=== PATIENT | male | born 1985 | race Two or more races ===

== ENCOUNTER 2016-12-26 08:58 | Emergency (ER) | payer OTHER ==
[2016-12-26 09:12] VITALS: TEMP 98.2; BMI 36.8
[2016-12-26] MEDS ORDERED: SODIUM CHLORIDE 1,000 ML IV STA (09:45)
[2016-12-26] MEDS ORDERED: ONDANSETRON *ODT* 4 MG TABLET SL ONE (09:45)
[2016-12-26] MEDS ORDERED: PANTOPRAZOLE SODIUM 40 MG in SODIUM CHLORIDE 100 ML IVPB ONE (09:45)
[2016-12-26] MEDS ORDERED: ONDANSETRON 4 MG/2 ML VIAL IVPUSH ONE (09:49)
[2016-12-26] MEDS ORDERED: PANTOPRAZOLE SODIUM 100 ML IVPB ONE (09:50)
[2016-12-26] MEDS ORDERED: ONDANSETRON 4 MG/2 ML VIAL ONE (09:50)
[2016-12-26 10:21] LABS: BASOPHIL 0.4 % (0-2.0); MCH 27.5 pg (25.7-33.7); MEAN CELL VOLUME 83.5 fl (80-96); MEAN PLT VOLUME 9.2 fl (7.5-11.1); PLATELET COUNT 183 K/MM3 (134-434)
[2016-12-26 10:30] LABS: URINE APPEARANCE CLEAR; URINE BILIRUBIN NEGATIVE (NEGATIVE); URINE COLOR DKYELLOW; URINE GLUCOSE (UA) NEGATIVE (NEGATIVE); URINE KETONE NEGATIVE (NEGATIVE); URINE LEUK ESTERASE NEGATIVE (NEGATIVE); URINE NITRITE NEGATIVE (NEGATIVE); URINE PROTEIN NEGATIVE (NEGATIVE); URINE UROBILINOGEN 4.0 E.U/dl E.U./dl (0.2-1.0)
[2016-12-26 10:35] LABS: URINE BLOOD 1+ (NEGATIVE)
[2016-12-26 10:40] LABS: URINE MUCUS MANY; URINE RBC 2 /hpf (0-3); URINE WBC <1 /hpf (3-5)
[2016-12-26 10:45] LABS: ALBUMIN 4.2 g/dl (3.4-5.0); ALK PHOS 168 U/L (45-117); ANION GAP 9 (8-16); BILIRUBIN,TOTAL 0.6 mg/dL (0.2-1.0); CALCIUM 9.1 mg/dL (8.5-10.1); CO2 26 mmol/L (21-32); CREATININE 0.9 mg/dL (0.7-1.3); GLUCOSE,RANDOM 84 mg/dL (74-106); SGPT/ALT 131 U/L (12-78); TOT PROT 8.5 g/dl (6.4-8.2)
[2016-12-26 10:46] LABS: SGOT/AST 125 U/L (15-37)
--- NOTE | 2016-12-26 12:24 | PDOC ---
History of Present Illness - General Chief Complaint: Vomiting/Diarrhea Stated Complaint: Vomiting/Diarrhea/FEVER Time Seen by Provider: 12/26/16 09:25 - History of Present Illness Initial Comments: 12/26/16 13:06 Mr. Gale is a 31 y/o male with a PMH of cholecystectomy appendectomy, presents to the ED today complaining of nausea diarrhea and anorexia x3 days. Pt. states that he started having nausea three days ago and developed anorexia. He felt that he had some fevers and chills, but did not take his temperature. Pt states that he has been able to eat some chicken soup but he has not been eating his normal amount. He states that he began with diarrhea today and had 6 loose bowel movements. Denies blood in the stool. Denies urinary changes, dysuria, hematuria. Pt. denies recent travel, dietary changes, recent antibiotic use, recent hospitalization. Pt. denies abdominal pain, chest pain, palpitations, SOB, edema Past History - Past Medical History Allergies/Adverse Reactions: Allergies Allergy/AdvReac Type Severity Reaction Status Date / Time No Known Allergies Allergy Verified 10/11/15 02:52 Home Medications: Ambulatory Orders NK [No Known Home Medication] 12/26/16 Other medical history: denies - Surgical History Appendectomy: Yes Cholecystectomy: Yes - Immunization History Immunization Up to Date: Yes - Psycho/Social/Smoking Cessation Hx Anxiety: No Suicidal Ideation: No Smoking History: Never smoked Have you smoked in the past 12 months: No Number of Cigarettes Smoked Daily: 0 Cigars Per Day: 0 Hx Alcohol Use: No Drug/Substance Use Hx: No Substance Use Type: None *Physical Exam - Vital Signs Last Vital Signs Temp Pulse Resp BP Pulse Ox 98.2 F 73 16 151/70 98 12/26/16 09:08 12/26/16 09:08 12/26/16 09:08 12/26/16 09:08 12/26/16 09:08 - Physical Exam Comments: 12/26/16 12:24 GENERAL: Well developed, well nourished. Awake and alert. No acute distress. HEENT: Normocephalic, atraumatic. PERRLA, EOMI. No conjunctival pallor. Sclera are non- icteric. Moist mucous membranes. Oropharynx is clear. NECK: Supple. Full ROM. No JVD. Carotid pulses 2+ and symmetric, without bruits. No thyromegaly. No lymphadenopathy. CARDIOVASCULAR: Regular rate and rhythm. No murmurs, rubs, or gallops. Distal pulses are 2+ and symmetric. PULMONARY: No evidence of respiratory distress. Lungs clear to auscultation bilaterally. No wheezing, rales or rhonchi. ABDOMINAL: Soft. Non-tender. Non-distended. No rebound or guarding. No organomegaly. Normoactive bowel sounds. (-) Stevenson's sign MUSCULOSKELETAL Normal range of motion at all joints. No bony deformities or tenderness. No CVA tenderness. EXTREMITIES: No cyanosis. No clubbing. No edema. No calf tenderness. SKIN: Warm and dry. Normal capillary refill. No rashes. No jaundice. NEUROLOGICAL: Alert, awake, appropriate. Cranial nerves 2-12 intact. No deficits to light touch and temperature in face, upper extremities and lower extremities. No motor deficits in the in face, upper extremities and lower extremities. Normoreflexic in the upper and lower extremities. Normal speech. Toes are down- going bilaterally. Gait is normal without ataxia. PSYCHIATRIC: Cooperative. Good eye contact. Appropriate mood and affect. ED Treatment Course - LABORATORY CBC & Chemistry Diagram: 12/26/16 10:00 12/26/16 09:48 Medical Decision Making - Medical Decision Making 12/26/16 11:28 Pt is a 31-year-old male status post cholecystectomy presenting with nausea and diarrhea 3 days. Abdominal exam is benign and there are negative red on history. No Stevenson's sign or right upper quadrant pain. Given sick contacts at work, potential viral ideology. Less likely pancreatitis, cholangitis. At this time we will order basic and treat for nausea. Will reevaluate 1. CBC, CMP. 2. Will start IV fluids and give zofran and pantoprazole 3. Will re-evaluate 12/26/16 12:28 Liver enzymes are back elevated. ALT 130, AST 125 and Alk Phos, 166. (+) urobiligen 4.0. Pt. denies alcohol and IV drug use. Concerning for hepatitis. Will send labs out. Pt. sees Dr. Maurice Bernal as an out patient. Spoke with his PA, Russell Kamara. Agreed with lab orders, did not recommend any additional testing and will see as outpatient this week. Pt. is feeling better at this time. Will discharge home with close PCP follow up. Gave dietary advice, emphasized hand washing, and advocated for liberal PO fluid intake *DC/Admit/Observation/Transfer Diagnosis at time of Disposition: Viral illness - Discharge Dispostion Disposition: HOME Condition at time of disposition: Improved - Referrals Referrals: Maurice Bernal MD [Primary Care Provider] - - Patient Instructions Printed Discharge Instructions: DI for Viral Gastroenteritis -- Adult Additional Instructions: You have a viral illness with elevated liver enzymes. As we spoke today, this could potentially be a hepatitis. You had hepatitis labs ordered today, call on Saturday12/29/16 for your results. You can call the ED directly at [phone]. Follow up with Dr. Bernal's office within 48 hours. Drink plenty of fluids and eat a bland diet. Avoid dairy products until symptoms have resolved for 48 hours. If you have increasing abdominal pain, cannot keep food down, new fevers or chills, return to the ED. - Post Discharge Activity Work/School Note: Back to Work
[2016-12-26 13:13] VITALS: BP 142/68; PULSE 71
[2016-12-27 06:06] LABS: HEP B SURFACE AB Reactive (.)
== END 2016-12-26 13:13 | disposition home or self-care (01) ==
LOC: JER 08:58
PROC: 3E033GC Introduction of Other Therapeutic Substance into Peripheral Vein, Percutaneous Approach (ICD-10-PCS; principal; 2016-12-26)
PROC: 3E0337Z Introduction of Electrolytic and Water Balance Substance into Peripheral Vein, Percutaneous Approach (ICD-10-PCS; 2016-12-26)
DX: B34.9 Viral infection, unspecified (principal)
CPT/HCPCS: 36415; 80053; 81003; 81015; 83690; 85025; 86704; 86706; 86708; 87340; 96361; 96365; 96375; 99282-25

== ENCOUNTER 2017-01-04 02:26 | Emergency (ER) | payer OTHER ==
[2017-01-04] MEDS ORDERED: NAPROXEN 500 MG TABLET (FP) PO ONE (03:23)
--- NOTE | 2017-01-04 03:23 | PDOC ---
History of Present Illness - General History Source: Patient Exam Limitations: No Limitations - History of Present Illness Initial Comments: 01/04/17 03:30 The patient is a 31 year old male, with a significant past medical history of cholecystitis, who presents to the emergency department complaining of a sore throat for 2 days. The patient reports associated throat pain. He rates the throat pain as a 10/10. The patient reports minor right ear pain, but denies any ear discharge, nasal congestion, or rhinorrhea. The patient denies any cough , fever, chills, headache, or dizziness. The patient denies any nausea, vomiting , diarrhea, or constipation. The patient denies any dysuria, hematuria, frequency, or urgency. The patient denies any changes in appetite. The patient denies any recent travel or sick contacts. Allergies: None reported. Past Surgical History: Appendectomy, Cholecystectomy Social History: Non-smoker. Denies alcohol or drug use. PCP: Dr. Maurice Bernal <Rj Gasca - Last Filed: 01/04/17 03:30> - General History Source: Patient <Thierno Obrien - Last Filed: 01/04/17 03:55> - General Chief Complaint: Sore Throat Stated Complaint: SORE THROAT Time Seen by Provider: 01/04/17 03:05 Past History <Rj Gasca - Last Filed: 01/04/17 03:30> - Surgical History Appendectomy: Yes Cholecystectomy: Yes - Immunization History Immunization Up to Date: Yes - Psycho/Social/Smoking Cessation Hx Anxiety: No Suicidal Ideation: No Smoking History: Never smoked Have you smoked in the past 12 months: No Number of Cigarettes Smoked Daily: 0 Cigars Per Day: 0 Information on smoking cessation initiated: No Hx Alcohol Use: No Drug/Substance Use Hx: No Substance Use Type: None <Thierno Obrien - Last Filed: 01/04/17 03:55> - Past Medical History Allergies/Adverse Reactions: Allergies Allergy/AdvReac Type Severity Reaction Status Date / Time No Known Allergies Allergy Verified 01/04/17 02:50 Home Medications: Ambulatory Orders Naproxen [Naprosyn -] 500 mg PO BID #30 tablet 01/04/17 Review of Systems - Review of Systems Able to Perform ROS?: Yes Comments:: 01/04/17 03:30 CONSTITUTIONAL: Absent: fever, no chills, no fatigue HEENT: Present: +right ear pain, +sore throat, +throat pain Absent: rhinorrhea, nasal congestion, mouth swelling, left ear pain, eye pain, visual changes CARDIOVASCULAR: Absent: chest pain, no palpitations RESPIRATORY: Absent: cough, no SOB GI: Absent: abdominal pain, no nausea, no vomiting, no constipation, no diarrhea GENITOURINARY: Absent: dysuria, no frequency, no hematuria MUSKULOSKELETAL: Absent: back pain, no arthralgia, no myalgia SKIN: Absent: rash NEURO: Absent: headache <Rj Gasca - Last Filed: 01/04/17 03:30> *Physical Exam - Vital Signs Last Vital Signs Temp Pulse Resp BP Pulse Ox 97.8 F 54 L 14 142/69 99 01/04/17 02:51 01/04/17 02:51 01/04/17 02:51 01/04/17 02:51 01/04/17 02:51 - Physical Exam Comments: 01/04/17 03:31 GENERAL: Well-appearing, well-nourished. No apparent distress. HEENT: Normocephalic, atraumatic. PERRLA, EOMI. No conjunctival pallor. Sclera are non- icteric. Moist mucous membranes. Throat is erythematous with no exudates CARDIOVASCULAR: Normal S1, S2. Regular rate and rhythm. PULMONARY: Clear to auscultation bilaterally. ABDOMEN: Soft, non-distended, non-tender. EXTREMITIES: Normal ROM in all four extremities. No gross deformities. SKIN: Warm, dry. No rash NEUROLOGICAL: No focal neurological deficits. <CamposJuliairisyogisamantha - Last Filed: 01/04/17 03:30> - Vital Signs Last Vital Signs Temp Pulse Resp BP Pulse Ox 97.8 F 54 L 14 142/69 99 01/04/17 02:51 01/04/17 02:51 01/04/17 02:51 01/04/17 02:51 01/04/17 02:51 <Thierno Obrien - Last Filed: 01/04/17 03:55> Medical Decision Making - Medical Decision Making 01/04/17 03:53 Dr. Obrien: The scribe's documentation has been prepared under my direction and personally reviewed by me in its entirery. I confirm that the note above accurately reflects all work, treatment, procedures, and medical decision making performed by me. Rapid strep is negative. patient advised drink plenty fluids and taken to take plenty of fluids <Thierno Obrien - Last Filed: 01/04/17 03:55> *DC/Admit/Observation/Transfer - Attestations Scribe Attestion: 01/04/17 03:33 Documentation prepared by Rj Gasca, acting as medical support assistant for Thierno Obrien DO. <Rj Gasca - Last Filed: 01/04/17 03:30> - Discharge Dispostion Admit: No <Thierno Obrien - Last Filed: 01/04/17 03:55> Diagnosis at time of Disposition: Viral illness - Discharge Dispostion Disposition: HOME Condition at time of disposition: Stable - Referrals Referrals: Maurice Bernal MD [Primary Care Provider] - - Patient Instructions Printed Discharge Instructions: DI for Viral Pharyngitis - Post Discharge Activity Work/School Note: Back to Work
[2017-01-04] MEDS ORDERED: NAPROXEN 500 MG TABLET (FP) ONE (03:32)
[2017-01-04 04:28] VITALS: BP 142/69; PULSE 54; TEMP 97.8; BMI 37.1
[2017-01-05] MEDS ORDERED: DEXAMETHASONE SOD PHOSPHATE 10 MG/1 ML VIAL ONE (15:04)
[2017-01-05] MEDS ORDERED: CLINDAMYCIN 600MG PREMIX IVPB 50 ML IVPB ONE (15:05)
[2017-01-05] MEDS ORDERED: KETOROLAC TROMETHAMINE 30 MG/1 ML VIAL ONE (15:05)
== END 2017-01-04 03:59 | disposition home or self-care (01) ==
LOC: JER 02:26
DX: J02.9 Acute pharyngitis, unspecified (principal); B97.89 Other viral agents as the cause of diseases classified elsewhere
CPT/HCPCS: 87070; 87430; 99281-25

== ENCOUNTER 2017-01-05 11:34 | Emergency (ER) | payer OTHER ==
[2017-01-05 11:46] VITALS: BMI 35.2
--- NOTE | 2017-01-05 14:31 | PDOC ---
History of Present Illness <Vee Snell - Last Filed: 01/05/17 20:06> - General History Source: Patient Exam Limitations: No Limitations - History of Present Illness Initial Comments: CHIEF COMPLAINT: 31 y/o afebrile male with PMH cholecystitis c/o sore throat. HISTORY OF PRESENT ILLNESS: The patient was seen here yesterday for sore throat and was diagnosed with viral pharyngitis. The patient states this is day 4 of symptoms and he is much worse. He states he cannot eat or swallow his saliva. He states he's felt chills as well. He denies CRANE, cough, runny nose, n /v/d, CP, SOB, abd pain, back pain. He has been taking Naproxen for his symptoms with last dose this morning. Vital signs on arrival are within normal limits. REVIEW OF SYSTEMS: GENERAL/CONSTITUTIONAL: +subjective fever and chills. No weakness. No weight change. HEAD, EYES, EARS, NOSE AND THROAT: No change in vision. No ear pain or discharge. +sore throat. +neck pain. CARDIOVASCULAR: No chest pain or shortness of breath. RESPIRATORY: No cough, wheezing, or hemoptysis. GASTROINTESTINAL: No nausea, vomiting, diarrhea. GENITOURINARY: No dysuria, frequency, or change in urination. MUSCULOSKELETAL: No joint or muscle swelling or pain. No neck or back pain. SKIN: No rash or easy bruising. NEUROLOGIC: No headache, vertigo, loss of consciousness, or loss of sensation. PHYSICAL EXAM: GENERAL: The patient is awake, alert, and fully oriented, in no acute distress. He is spitting his saliva into a bag. He has a hot potato voice. HEAD: Normal with no signs of trauma. NECK: Tender right sided anterior cervical lymphadenopathy. ENT: Pupils equal, round and reactive to light, extraocular movements intact, sclera anicteric, conjunctiva clear. 2+ erythematous tonsils without exudate noted. 3+ trismus. Mild right sided soft palate swelling with minimal uvula deviation. LUNGS: Clear to auscultation bilaterally. Normal excursion. No respiratory distress or use of accessory muscles. CV: RRR, S1/S2, no MRG. Cap refill < 2 sec. ABDOMEN: Soft, non-distended, non-tender even to deep palpation, no hepatomegaly or splenomegaly, no masses. EXTREMITIES: Normal range of motion, no edema. NEUROLOGICAL: Normal speech, normal gait. CN II-XII grossly intact. PSYCH: Normal mood, normal affect. SKIN: Warm, dry, normal turgor, no rashes or lesions noted. <Jamee Harman - Last Filed: 01/06/17 18:44> - General Chief Complaint: Pain Stated Complaint: SORE THROAT Time Seen by Provider: 01/05/17 14:18 Past History <Vee Snell - Last Filed: 01/05/17 20:06> - Past Medical History Other medical history: none - Surgical History Appendectomy: Yes Cholecystectomy: Yes - Immunization History Immunization Up to Date: Yes - Psycho/Social/Smoking Cessation Hx Anxiety: No Suicidal Ideation: No Smoking History: Never smoked Have you smoked in the past 12 months: No Number of Cigarettes Smoked Daily: 0 Cigars Per Day: 0 Information on smoking cessation initiated: No Hx Alcohol Use: No Drug/Substance Use Hx: No Substance Use Type: None <Jamee Harman - Last Filed: 01/06/17 18:44> - Past Medical History Allergies/Adverse Reactions: Allergies Allergy/AdvReac Type Severity Reaction Status Date / Time No Known Allergies Allergy Verified 01/05/17 11:42 Home Medications: Ambulatory Orders Naproxen [Naprosyn -] 500 mg PO BID #30 tablet 01/04/17 *Physical Exam - Vital Signs Last Vital Signs Temp Pulse Resp BP Pulse Ox 98.5 F 86 17 140/82 97 01/05/17 19:19 01/05/17 19:19 01/05/17 19:19 01/05/17 19:19 01/05/17 19:19 <Vee Snell - Last Filed: 01/05/17 20:06> - Vital Signs Last Vital Signs Temp Pulse Resp BP Pulse Ox 98.1 F 84 18 127/83 100 01/05/17 11:44 01/05/17 11:44 01/05/17 11:44 01/05/17 11:44 01/05/17 11:44 <Jamee Harman - Last Filed: 01/06/17 18:44> ED Treatment Course - LABORATORY CBC & Chemistry Diagram: 01/05/17 14:46 01/05/17 14:46 - ADDITIONAL ORDERS Additional order review: Laboratory Results 01/05/17 14:46 Sodium 141 Potassium 3.9 Chloride 105 Carbon Dioxide 24 Anion Gap 12 BUN 11 Creatinine 0.9 Creat Clearance w eGFR > 60 Random Glucose 92 Calcium 8.9 Total Bilirubin 0.8 D AST 54 H D ALT 58 D Alkaline Phosphatase 154 H Total Protein 8.2 Albumin 4.4 01/05/17 14:46 Group A Strep Rapid Antigen - Final Throat 01/05/17 14:46 RBC 5.45 MCV 82.6 MCHC 33.3 RDW 14.7 MPV 8.2 D Neutrophils % 80.4 Lymphocytes % 9.7 D Monocytes % 9.3 Eosinophils % 0.2 Basophils % 0.4 - Medications Given in the ED: ED Medications Discontinued Medications Generic Name Dose Route Start Last Admin Trade Name Freq PRN Reason Stop Dose Admin Dexamethasone Sodium Phosphate 10 mg 01/05/17 14:32 01/05/17 15:07 Decadron Injection - IVPUSH 01/05/17 14:33 10 mg ONCE ONE Administration Clindamycin Phosphate 50 mls @ 100 mls/hr 01/05/17 14:32 01/05/17 15:10 Cleocin 600 Mg Premix Ivpb - IVPB 01/05/17 15:01 100 mls/hr ONCE ONE Administration Sodium Chloride 1,000 mls @ 1,000 mls/hr 01/05/17 14:32 01/05/17 15:05 Normal Saline - IV 01/05/17 15:31 1,000 mls/hr ASDIR STA Administration Ketorolac Tromethamine 30 mg 01/05/17 14:32 01/05/17 15:05 Toradol Injection - IVPUSH 01/05/17 14:33 30 mg ONCE ONE Administration <Vee Snell - Last Filed: 01/05/17 20:06> - LABORATORY CBC & Chemistry Diagram: 01/05/17 14:46 01/05/17 14:46 <Jamee Harman - Last Filed: 01/06/17 18:44> Medical Decision Making - Medical Decision Making A/P: 31 y/o afebrile male with possible early/mild peritonsillar abscess. Plan is as follows: 1. Labs 2. IV fluids 3. IV decadron 4. IV toradol 5. IV clinda 6. CT scan soft tissues of neck CT scan of soft tissues of neck IMPRESSION: Findings suggestive of right submandibular adenitis with extension of the inflammatory process into the adjacent soft tissues and into the deep soft tissues of the face on the right. An abscess cannot be excluded with this study. Recommend emergent referral to ENT for further evaluation and treatment. The patient can now speak without spitting out his secretions and he can open his mouth without pain. Placed call to Dr. Lutehr. Spoke with Dr. Menon, regional telecommunications specialist for Dr. Luther, and he suggests transfer to [facility] in case emergency trach is needed because he does not feel comfortable. Called [facility] transfer center and am waiting for a call back from ENT/ER for transfer. I am signing this patient out to my colleague: MEGAN Snell In brief, this patient is being seen in the ED for a chief complaint of: sore throat; can't swallow I have completed the initial assessment interview note and have ordered: labs, CT soft tissue neck, IV fluids, IV toradol, IV decadron, IV clinda I have reviewed the following results: all Pending results are: none Plan for disposition is as follows: Awaiting call back from [facility] for transfer <Jamee Harman - Last Filed: 01/06/17 18:44> *DC/Admit/Observation/Transfer - Transfer to Acute Care Facility Receiving Facility: [facility]. <Vee Snell - Last Filed: 01/05/17 20:06> <Jamee Harman - Last Filed: 01/06/17 18:44> Diagnosis at time of Disposition: transferred, Sore throat, Cellulitis of larynx - Discharge Dispostion Disposition: TRANSFER ACUTE CARE/OTHER HOSP - Referrals Referrals: Maurice Bernal MD [Primary Care Provider] -
[2017-01-05] MEDS ORDERED: SODIUM CHLORIDE 1,000 ML IV STA (14:32)
[2017-01-05] MEDS ORDERED: KETOROLAC TROMETHAMINE 30 MG/1 ML VIAL IVPUSH ONE (14:32)
[2017-01-05] MEDS ORDERED: DEXAMETHASONE SOD PHOSPHATE 10 MG/1 ML VIAL IVPUSH ONE (14:32)
[2017-01-05] MEDS ORDERED: CLINDAMYCIN 600MG PREMIX IVPB 50 ML IVPB ONE (14:32)
[2017-01-05 15:04] LABS: BASOPHIL 0.4 % (0-2.0); EOSINOPHIL 0.2 % (0-4.5); MCH 27.6 pg (25.7-33.7); MCHC 33.3 g/dl (32.0-35.9); MEAN CELL VOLUME 82.6 fl (80-96); MEAN PLT VOLUME 8.2 fl (7.5-11.1); NEUTROPHILS 80.4 % (42.8-82.8); PLATELET COUNT 195 K/MM3 (134-434); RDW 14.7 % (11.9-15.9); WHITE BLOOD COUNT 15.3 K/mm3 (4.0-10.0)
[2017-01-05 15:27] LABS: ALBUMIN 4.4 g/dl (3.4-5.0); ANION GAP 12 (8-16); CALCIUM 8.9 mg/dL (8.5-10.1); CO2 24 mmol/L (21-32); CREATININE 0.9 mg/dL (0.7-1.3); GLUCOSE,RANDOM 92 mg/dL (74-106); SGPT/ALT 58 U/L (12-78)
[2017-01-05 15:29] LABS: ALK PHOS 154 U/L (45-117); BILIRUBIN,TOTAL 0.8 mg/dL (0.2-1.0); TOT PROT 8.2 g/dl (6.4-8.2)
[2017-01-05 15:30] LABS: SGOT/AST 54 U/L (15-37)
[2017-01-05 19:20] VITALS: BP 140/82; PULSE 86; TEMP 98.5
== END 2017-01-05 20:09 | disposition short-term general hospital (02) ==
LOC: JER 11:34
PROC: 3E03329 Introduction of Other Anti-infective into Peripheral Vein, Percutaneous Approach (ICD-10-PCS; principal; 2017-01-05)
PROC: 3E0333Z Introduction of Anti-inflammatory into Peripheral Vein, Percutaneous Approach (ICD-10-PCS; 2017-01-05)
PROC: 3E0333Z Introduction of Anti-inflammatory into Peripheral Vein, Percutaneous Approach (ICD-10-PCS; 2017-01-05)
DX: J36 Peritonsillar abscess (principal)
CPT/HCPCS: 36415; 70490-TC; 80053; 85025; 87070; 87430; 96365; 96375; 99284-25

== ENCOUNTER 2018-03-27 11:29 | Emergency (ER) | payer OTHER ==
[2018-03-27 11:37] VITALS: BP 121/86; PULSE 72; TEMP 98.7; BMI 35.2
--- NOTE | 2018-03-27 12:43 | PDOC ---
History of Present Illness - General Chief Complaint: Ear Problem Stated Complaint: EAR PAIN Time Seen by Provider: 03/27/18 11:56 History Source: Patient Exam Limitations: No Limitations - History of Present Illness Initial Comments: 03/27/18 12:37 Patient is a 32-year-old male no past medical history presents with 3 days of right ear pain. Patient is taken Advil with relief however when it wears off the pain comes back. He states that the ears painful to touch. Denies fevers, chills, runny nose, sore throat, shortness of breath, nausea, vomiting and diarrhea. Past History - Travel Traveled outside of the country in the last 30 days: No Close contact w/someone who was outside of country & ill: No - Past Medical History Allergies/Adverse Reactions: Allergies Allergy/AdvReac Type Severity Reaction Status Date / Time No Known Allergies Allergy Verified 03/27/18 11:37 Home Medications: Ambulatory Orders Naproxen [Naprosyn -] 500 mg PO BID #30 tablet 01/04/17 Ofloxacin Otic [Floxin Otic -] 10 drop OT DAILY #100 drops 03/27/18 COPD: No DVT: No - Surgical History Appendectomy: Yes Cholecystectomy: Yes - Immunization History Immunization Up to Date: Yes - Suicide/Smoking/Psychosocial Hx Smoking History: Never smoked Have you smoked in the past 12 months: No Number of Cigarettes Smoked Daily: 0 Cigars Per Day: 0 Information on smoking cessation initiated: No Hx Alcohol Use: No Drug/Substance Use Hx: No Substance Use Type: None Review of Systems - Review of Systems Able to Perform ROS?: Yes Is the patient limited Macedonian proficient: No Constitutional: No: Chills, Fever, Weakness HEENTM: Yes: Ear Pain (R side), Ear Discharge. No: Hearing Loss, Throat Pain, Throat Swelling Respiratory: No: Cough, Shortness of Breath, Wheezing Integumentary: No: Bruising, Erythema, Rash Neurological: No: Headache, Tremors, Weakness All Other Systems: Reviewed and Negative *Physical Exam - Vital Signs Last Vital Signs Temp Pulse Resp BP Pulse Ox 98.7 F 72 16 121/86 100 03/27/18 11:35 03/27/18 11:35 03/27/18 11:35 03/27/18 11:35 03/27/18 11:35 - Physical Exam General Appearance: Yes: Nourished, Appropriately Dressed. No: Apparent Distress HEENT: positive: EOMI, KIANA, TMs Normal, Other (R ear canal edematous with purlent discharge). negative: Tonsillar Exudate, Tonsillar Erythema, TM Bulging , TM Dull, TM Erythema Neck: positive: Trachea midline, Supple. negative: Tender, Rigid, Lymphadenopathy (R), Lymphadenopathy (L) Integumentary: positive: Normal Color, Dry, Warm Neurologic: positive: waitress II-XII NML intact, Fully Oriented, Alert, Normal Mood/ Affect, Normal Response, Motor Strength 03/22 Medical Decision Making - Medical Decision Making 03/27/18 12:37 Patient is a 32-year-old male with no past medical history resides with 3 days of right ear pain. On exam patient with clinical right otitis externa. We'll prescribe drops at this time. *DC/Admit/Observation/Transfer Diagnosis at time of Disposition: Otitis externa Qualifiers: Otitis externa type: unspecified type Chronicity: acute Laterality: right Qualified Code(s): H60.501 - Unspecified acute noninfective otitis externa, right ear - Discharge Dispostion Disposition: HOME Condition at time of disposition: Stable Decision to Admit order: No - Referrals Referrals: Mansoor Luther MD [Staff Physician] - - Patient Instructions Printed Discharge Instructions: DI for Otitis Externa Additional Instructions: You have a ear infection of the canal. Use the drops in the ear for the next 10 days. Follow the instructions on the bottle. You may use Advil as needed for pain. Follow the manufacturers directions Follow up with ENT in one week if your symptoms do not improve Return to the ED with any new or worsening symptoms. - Post Discharge Activity Forms/Work/School Notes: Back to Work
== END 2018-03-27 12:53 | disposition home or self-care (01) ==
LOC: JERFT 11:29
DX: H60.501 Unspecified acute noninfective otitis externa, right ear (principal)
CPT/HCPCS: 99281-25

== ENCOUNTER 2022-08-14 04:01 | Emergency (ER) | payer SELFPAY ==
[2022-08-14 04:10] VITALS: BP 145/85; PULSE 74; RESP 18; TEMP 98.1; BMI 49.3
[2022-08-14 06:37] LABS: BASO % 0.5 % (0-2.0); EOS % 2.3 % (0-4.5); HEMATOCRIT 39.5 % (35.4-49); HEMOGLOBIN 12.9 GM/dL (11.7-16.9); LYMPH % 21.2 % (8-40); MCH 24.9 pg (25.7-33.7); MCHC 32.7 g/dl (32.0-35.9); MEAN CELL VOLUME 76.2 fl (80-96); MEAN PLT VOLUME 8.9 fl (7.5-11.1); MONO % 9.9 % (3.8-10.2); NEUT % 66.1 % (42.8-82.8); PLATELET COUNT 313 10^3/uL (134-434); RBC 5.18 M/mm3 (4.00-5.60); RDW 17.7 % (11.9-15.9); WHITE BLOOD COUNT 10.3 K/mm3 (4.0-10.0)
[2022-08-14 06:42] LABS: ALBUMIN 3.5 g/dl (3.4-5.0); BLOOD UREA NITROGEN 8.5 mg/dL (7-18); CALCIUM 8.7 mg/dL (8.5-10.1)
[2022-08-14 06:45] LABS: CREATININE 0.9 mg/dL (0.55-1.3)
[2022-08-14 06:47] LABS: BILIRUBIN,TOTAL 0.3 mg/dL (0.2-1); TOT PROT 7.8 g/dl (6.4-8.2)
== END 2022-08-14 06:53 | disposition home or self-care (01) ==
LOC: JER 04:01
DX: R07.89 Other chest pain (principal)
CPT/HCPCS: 36415; 71046-TC-FY; 80053; 84484; 85025; 85379; 93005; 93010; 99284-25

== ENCOUNTER 2022-08-16 21:38 | Emergency (ER) | payer SELFPAY ==
[2022-08-16 21:42] VITALS: BP 153/83; PULSE 90; RESP 18; TEMP 98.1; BMI 54.8
== END 2022-08-16 23:04 | disposition home or self-care (01) ==
LOC: JERFT 21:38
DX: H60.533 Acute contact otitis externa, bilateral (principal)
CPT/HCPCS: 99283-25

== ENCOUNTER 2023-11-04 13:35 | Emergency (ER) | payer SELFPAY ==
[2023-11-04 14:05] VITALS: BP 121/74; PULSE 100; RESP 18; TEMP 98.2; BMI 54.8
[2023-11-04] MEDS ORDERED: IBUPROFEN 400 MG TABLET (FP) PO ONE ×2 (15:29→15:42)
[2023-11-04 16:00] LABS: BASO % 0.7 % (0-2.0); EOS % 1.1 % (0-4.5); HEMATOCRIT 40.4 % (35.4-49); HEMOGLOBIN 13.3 GM/dL (11.7-16.9); LYMPH % 19.8 % (8-40); MEAN CELL VOLUME 75.7 fl (80-96); MEAN PLT VOLUME 8.4 fl (7.5-11.1); MONO % 7.9 % (3.8-10.2); NEUT % 70.5 % (42.8-82.8); PLATELET COUNT 306 10^3/uL (134-434); RBC 5.33 M/mm3 (4.00-5.60); RDW 17.6 % (11.9-15.9); WHITE BLOOD COUNT 10.2 K/mm3 (4.0-10.0)
[2023-11-04 16:22] LABS: POTASSIUM 4.1 mmol/L (3.5-5.1)
[2023-11-04 16:24] LABS: BLOOD UREA NITROGEN 10.7 mg/dL (7-18); CALCIUM 9.2 mg/dL (8.5-10.1)
[2023-11-04 16:25] LABS: ALBUMIN 3.6 g/dl (3.4-5.0)
[2023-11-04 16:28] LABS: CREATININE 1.1 mg/dL (0.55-1.3)
[2023-11-04 16:29] LABS: BILIRUBIN,TOTAL 0.3 mg/dL (0.2-1)
== END 2023-11-04 17:21 | disposition home or self-care (01) ==
LOC: JERFT 13:35
DX: M79.602 Pain in left arm (principal); R20.2 Paresthesia of skin; R07.9 Chest pain, unspecified
CPT/HCPCS: 36415; 71046-TC-FY; 80053; 84484; 85025; 93005; 93010; 99285-25

== ENCOUNTER 2024-03-11 09:57 | Emergency (ER) | payer OTHER ==
[2024-03-11 10:07] VITALS: BP 158/48; PULSE 96; RESP 18; TEMP 99.1; BMI 53.2
== END 2024-03-11 12:16 | disposition home or self-care (01) ==
LOC: JERFT 09:57
DX: L05.01 Pilonidal cyst with abscess (principal)
CPT/HCPCS: 99283-25